=== PATIENT | female | born 1980 | race Two or more races ===

== ENCOUNTER 2017-02-09 13:40 | Emergency (ER) | payer SELFPAY ==
[2017-02-09 13:48] VITALS: TEMP 98.2
[2017-02-09] MEDS ORDERED: IOPAMIDOL (ISOVUE 370) 100 ML BTL IV ONE (13:48)
--- NOTE | 2017-02-09 13:49 | EDPHY ---
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 Her electrical assembly supervisor who was driving her here describes her eyes rolling back in her tongue sticking out and shaking for couple of seconds. She says she looks a little bit out of it at work and then was confused in the car after waking up from this episode where her eyes rolled back. Here she primarily complains of a headache at the left side of her neck and the base of her skull on the left side. Not confused now. REVIEW OF SYSTEMS: Eye: no change in vision ENT: no sore throat Cardiac: no chest pain or syncope Pulmonary: no cough or SOB Abdomen: no vomiting, diarrhea, abdominal pain Musculoskeletal: Neck as above Skin: no rash Neuro: HPI Constitutional: no fever : no urinary symptoms A comprehensive 10 point review of systems is otherwise negative aside from elements mentioned in the history of present illness. PAST MEDICAL HISTORY: Negative, felt well just before arrival. Denies . Family history: Negative for venous thromboembolism. Social history: Denies drug or alcohol. General Appearance: Sleepy but answers questions appropriately. Eyes: No scleral icterus. ENT, Mouth: Normal mucous membranes. Respiratory: Normal respiratory effort, breath sounds equal, lungs are clear to auscultation. Cardiovascular: Regular rate and rhythm. Gastrointestinal: Abdomen is soft and non tender. Neurological: Alert and oriented x3. Normally conversant. Face symmetric, normal movement and sensation in all extremities. Good outside physical damage appraiser strength in both arms. Skin: Warm and dry, no rashes. Musculoskeletal: No peripheral edema and no joint swelling. No neck stiffness or meningeal signs. Psychiatric: Not agitated. Emergency Department course/MDM: I-STAT, noncontrast head CT. With sudden onset of headache my concern for subarachnoid is high enough that I would not make this patient a stroke alert as she has contraindication to Activase. Discussed with Wesley at 1407, agrees with evaluation, no stroke alert, will followup as in or outpatient. 1411: Normal CT head and angio neck per Dr. Bautista. 1430: Lumbar puncture discussed and consented, indication is sudden onset worst headache of life with negative noncontrast head CT, evaluate for subarachnoid. 1501: WBC 0, RBC 5. This CSF would be consistent with a few red blood cells from the procedure but I think that subarachnoid is unlikely. At this point I think the patient is unlikely to have acute medical or surgical emergent condition. I think that intracranial venous thrombosis or dissection or HAIR COLORIST infection is unlikely. I think she was unlikely to have a seizure and more likely had syncope with myoclonic jerking in her electrical assembly supervisor's car on the way here. Did not have incontinence and did not bite her tongue, did not have true postictal state, as she was really only confused for a few minutes. Patient had recurrent neck pain and was given 50 mcg IV fentanyl and some oral acetaminophen. At 3:10 p.m. she is pretty sleepy and results were discussed with her employer and her partner. I think it is reasonable for her to be discharged with symptomatic treatment at this time; NSAIDs and neurology followup. Constitutional: Initial Vital Signs Temperature (C) 36.8 C 02/09/17 13:44 Heart Rate 64 02/09/17 13:44 Respiratory Rate 16 02/09/17 13:44 Blood Pressure 99/86 H 02/09/17 13:44 O2 Sat (%) 96 02/09/17 13:44 O2 Delivery Mode Room Air Allergies/Adverse Reactions: No Known Allergies Allergy (Unverified 02/09/17 13:44) Home Medications: Medication Instructions Recorded NK [No Known Home Meds] 02/09/17 Medical Decision Making - Diagnostics EKG Interpretation: 12-lead EKG interpreted by me; official reading is in trace master. My interpretation is sinus rhythm with right axis rate 71. Imaging Results: Imaging Impressions Head CT 02/09/17 13:43 Impression: Normal. Results called and discussed with Dr. Jeff Vinson at 02/09/2017 14:03. Head CTA 02/09/17 13:49 Impression: Normal CT angiogram of the carotid arteries and vertebral arteries. Measurement of carotid stenosis is based on the residual internal carotid diameter with [place] Symptomatic Carotid Endarterectomy Trial (NASCET) based stenosis levels. CT Angiogram of the Brain Clinical Indications: Left-sided neck pain. Headache. Syncope. . Technique: CT angiogram of the brain was performed with the uneventful intravenous administration of 85 mL Isovue-370 contrast. Multiplanar reconstructions including 3D reconstructions performed and evaluated on [employer] workstation in order to better evaluate the [place] vessels. Images were manipulated by the radiologist at the computer workstation. Dose reduction techniques were utilized. Findings: Major vessels of the [place] are adequately displayed, demonstrating no evidence of aneurysm, vascular malformation, flow-limiting stenosis, or occlusion. Bilateral cavernous internal carotid arteries and vertebrobasilar system demonstrates no evidence of flow-limiting stenosis, aneurysm, occlusion or dissection. Superior sagittal sinus, transverse sinuses, and major veins demonstrate no evidence of intraluminal thrombi. Impression: Negative CT angiogram of the brain. Results called and discussed with Dr. Jeff Vinson at 02/09/2017 14:14. Neck CTA 02/09/17 13:49 Impression: Normal CT angiogram of the carotid arteries and vertebral arteries. Measurement of carotid stenosis is based on the residual internal carotid diameter with [place] Symptomatic Carotid Endarterectomy Trial (NASCET) based stenosis levels. CT Angiogram of the Brain Clinical Indications: Left-sided neck pain. Headache. Syncope. . Technique: CT angiogram of the brain was performed with the uneventful intravenous administration of 85 mL Isovue-370 contrast. Multiplanar reconstructions including 3D reconstructions performed and evaluated on [employer] workstation in order to better evaluate the [place] vessels. Images were manipulated by the radiologist at the computer workstation. Dose reduction techniques were utilized. Findings: Major vessels of the [place] are adequately displayed, demonstrating no evidence of aneurysm, vascular malformation, flow-limiting stenosis, or occlusion. Bilateral cavernous internal carotid arteries and vertebrobasilar system demonstrates no evidence of flow-limiting stenosis, aneurysm, occlusion or dissection. Superior sagittal sinus, transverse sinuses, and major veins demonstrate no evidence of intraluminal thrombi. Impression: Negative CT angiogram of the brain. Results called and discussed with Dr. Jeff Vinson at 02/09/2017 14:14. Procedures: Procedure: Lumbar puncture. Indication: headache Risks benefits and alternatives to the procedure were discussed including but not limited to infection, headache, bleeding, and neurologic damage. Consent was obtained. The patient was prepped and draped in the usual sterile fashion. A time out was completed. The entry site was anesthetized with 1% lidocaine and a lumbar puncture was performed with a 23-gauge spinal needle. Single attempt. Approximately 4 mL of clear fluid was obtained. Opening pressure was not obtained. There were no complications. The procedure was performed by myself. Differential Diagnosis: Differential diagnosis considered for headache including but not limited to subarachnoid hemorrhage, migraine headache, tension headache and infectious causes such as meningitis, pharyngitis and sinusitis. - Data Points Laboratory Results: Laboratory Results 02/09/17 13:45 02/09/17 13:45 02/09/17 02/09/17 02/09/17 14:20 13:45 13:45 WBC RBC Hgb POC Hgb Hct POC Hct MCV MCH MCHC RDW Plt Count MPV Neut % (Auto) Lymph % (Auto) [place] % (Auto) Eos % (Auto) Baso % (Auto) Nucleat RBC Rel Count Absolute Neuts (auto) Absolute Lymphs (auto) Absolute Monos (auto) Absolute Eos (auto) Absolute Basos (auto) Absolute Nucleated RBC Immature Gran % Immature Gran # PT INR APTT POC Sodium Sodium 140 mEq/L mEq/L (134-144) POC Potassium Potassium 4.3 mEq/L mEq/L (3.5-5.2) POC Chloride Chloride 108 mEq/L mEq/L (97-110) Carbon Dioxide 16 mEq/l L mEq/l (22-31) Anion Gap 16 mEq/L mEq/L (8-16) POC BUN BUN 13 mg/dL mg/dL (7-23) Creatinine 0.7 mg/dL mg/dL (0.6-1.0) POC Creatinine Estimated GFR > 60 Glucose 78 mg/dL mg/dL (70-100) POC Glucose Calcium 9.8 mg/dL mg/dL (8.5-10.4) Beta HCG, Qual NEGATIVE CSF Tube Number 4 CSF Appearance CLEAR (CLEAR) CSF Color COLORLESS (COLORLESS) CSF Supernatant COLORLESS (COLORLESS) CSF WBC 0 /mm3 /mm3 (0-5) CSF RBC 5 /mm3 H /mm3 (0-0) CSF Glucose 45 mg/dL L mg/dL (50-75) CSF Total Protein 13 mg/dL mg/dL (12-60) 02/09/17 02/09/17 02/09/17 13:45 13:45 13:41 WBC 6.56 10^3/uL 10^3/uL (3.80-9.50) RBC 4.72 10^6/uL 10^6/uL (4.18-5.33) Hgb 14.7 g/dL g/dL (12.6-16.3) POC Hgb 15.6 gm/dL gm/dL (12.6-16.3) Hct 41.8 % % (38.0-47.0) POC Hct 46 % % (38-47) MCV 88.6 fL fL (81.5-99.8) MCH 31.1 pg pg (27.9-34.1) MCHC 35.2 g/dL g/dL (32.4-36.7) RDW 14.5 % % (11.5-15.2) Plt Count 322 10^3/uL 10^3/uL (150-400) MPV 10.4 fL fL (8.7-11.7) Neut % (Auto) 62.0 % % (39.3-74.2) Lymph % (Auto) 28.8 % % (15.0-45.0) [place] % (Auto) 7.8 % % (4.5-13.0) Eos % (Auto) 0.8 % % (0.6-7.6) Baso % (Auto) 0.3 % % (0.3-1.7) Nucleat RBC Rel Count 0.0 % % (0.0-0.2) Absolute Neuts (auto) 4.07 10^3/uL 10^3/uL (1.70-6.50) Absolute Lymphs (auto) 1.89 10^3/uL 10^3/uL (1.00-3.00) Absolute Monos (auto) 0.51 10^3/uL 10^3/uL (0.30-0.80) Absolute Eos (auto) 0.05 10^3/uL 10^3/uL (0.03-0.40) Absolute Basos (auto) 0.02 10^3/uL 10^3/uL (0.02-0.10) Absolute Nucleated RBC 0.00 10^3/uL 10^3/uL (0-0.01) Immature Gran % 0.3 % % (0.0-1.1) Immature Gran # 0.02 10^3/uL 10^3/uL (0.00-0.10) PT 13.7 SEC SEC (12.0-15.0) INR 1.06 (0.83-1.16) APTT 28.9 SEC SEC (23.0-38.0) POC Sodium 141 mEq/L mEq/L (134-144) Sodium POC Potassium 3.9 mEq/L mEq/L (3.3-5.0) Potassium POC Chloride 105 mEq/L mEq/L (97-110) Chloride Carbon Dioxide Anion Gap POC BUN 13 mg/dL mg/dL (7-23) BUN Creatinine POC Creatinine 0.6 mg/dL mg/dL (0.6-1.0) Estimated GFR Glucose POC Glucose 84 mg/dL mg/dL (70-100) Calcium Beta HCG, Qual CSF Tube Number CSF Appearance CSF Color CSF Supernatant CSF WBC CSF RBC CSF Glucose CSF Total Protein Microbiology Results: MICROBIOLOGY 02/09/17 14:20 Cerebral Spinal Fluid Gram Stain - Final Medications Given: Discontinued Medications Acetaminophen (Tylenol) 650 mg PO EDNOW ONE Stop: 02/09/17 14:43 Last Admin: 02/09/17 14:55 Dose: Not Given Fentanyl (Sublimaze) 50 mcg IVP EDNOW ONE Stop: 02/09/17 14:43 Last Admin: 02/09/17 14:46 Dose: 50 mcg Ketorolac Tromethamine (Toradol) 15 mg IVP EDNOW ONE Stop: 02/09/17 15:05 Last Admin: 02/09/17 15:13 Dose: 15 mg Point of Care Test Results: 02/09/17 13:41 POC Sodium 141 POC Potassium 3.9 POC Chloride 105 POC BUN 13 POC Creatinine 0.6 POC Glucose 84 Departure - Departure Disposition: Home, Routine, Self-Care Clinical Impression: Headache Qualifiers: Headache type: unspecified Headache chronicity pattern: acute headache Intractability: not intractable Qualified Code(s): R51 - Headache Syncope Qualifiers: Syncope type: unspecified Qualified Code(s): R55 - Syncope and collapse Condition: Good Instructions: Acute Headache (ED) Additional Instructions: Testing including lumbar puncture and CT imaging did not show evidence of infection, aneurysm, bleeding or tumor. No evidence of neck blood vessel dissection or tearing. Please call Dr. Olson's office and follow-up tomorrow if you're still in town, or next week when you return from [place]. Oral ibuprofen 600 mg every 8 hours for the next 3 days. Referrals: Mitchell Olson, [Medical Doctor] - As per Instructions
[2017-02-09 14:02] LABS: % IMMATURE GRANULYOCYTES 0.3 % (0.0-1.1); ABSOLUTE IMMATURE GRANULOCYTES 0.02 10^3/uL (0.00-0.10); ADD DIFF? NO; ADD MORPH? NO; ADD SCAN? NO; ATYPICAL LYMPHOCYTE FLAG 0 (0-99); FRAGMENT RBC FLAG 0 (0-99); HEMATOCRIT 41.8 % (38.0-47.0); HEMOGLOBIN 14.7 g/dL (12.6-16.3); LEFT SHIFT FLG 0 (0-99); LIPEMIA HEMOLYSIS FLAG 90 (0-99); MEAN CELL HEMOGLOBIN 31.1 pg (27.9-34.1); MEAN CELL HEMOGLOBIN CONCENTR. 35.2 g/dL (32.4-36.7); MEAN CELL VOLUME 88.6 fL (81.5-99.8); MEAN PLATELET VOLUME 10.4 fL (8.7-11.7); PLATELET CLUMPS FLAG 0 (0-99); PLATELET COUNT 322 10^3/uL (150-400); RED BLOOD CELL COUNT 4.72 10^6/uL (4.18-5.33); RED CELL DISTRIBUTION WIDTH 14.5 % (11.5-15.2)
[2017-02-09 14:06] LABS: INR 1.06 (0.83-1.16); PROTIME(PATIENT) 13.7 SEC (12.0-15.0)
[2017-02-09 14:07] LABS: APTT 28.9 SEC (23.0-38.0)
--- NOTE | 2017-02-09 14:09 | CPEKG ---
Heart Rate: 71 RR Interval: 845 P-R Interval: 152 QRSD Interval: 96 QT Interval: 400 QTC Interval: 435 P Heath: 43 QRS Heath: 106 T Wave Heath: 36 EKG Severity - OTHERWISE NORMAL ECG - EKG Impression: SINUS RHYTHM EKG Impression: BORDERLINE RIGHT AXIS DEVIATION Electronically Signed By: Jeff Vinson 09-Feb-2017 15:56:26
[2017-02-09 14:17] LABS: ANION GAP 16 mEq/L (8-16); CALCIUM 9.8 mg/dL (8.5-10.4); CARBON DIOXIDE 16 mEq/l (22-31); CHLORIDE 108 mEq/L (97-110); CREATININE 0.7 mg/dL (0.6-1.0); GLOMERULAR FILTRATION RATE > 60; GLUCOSE 78 mg/dL (70-100); POTASSIUM 4.3 mEq/L (3.5-5.2); SODIUM 140 mEq/L (134-144)
[2017-02-09] MEDS ORDERED: fentaNYL 100 MCG/2 ML INJ IVP ONE (14:42)
[2017-02-09] MEDS: ACETAMINOPHEN 325 MG TAB PO ONE ×2 (14:45→14:55)
[2017-02-09 14:52] LABS: CSF COLOR COLORLESS (COLORLESS)
[2017-02-09 14:53] LABS: CSF APPEARANCE CLEAR (CLEAR); CSF SUPERNATANT COLORLESS (COLORLESS); WBC, CSF 0 /mm3 (0-5)
[2017-02-09 14:54] LABS: PROTEIN, CSF 13 mg/dL (12-60)
[2017-02-09] MEDS ORDERED: KETOROLAC 30 MG/1 ML SDV IVP ONE (15:04)
[2017-02-09 15:16] VITALS: BP 118/82; PULSE 56; RESP 16; O2SAT 98
== END 2017-02-09 15:45 | disposition home or self-care (01) ==
PROC: 009U3ZX Drainage of Spinal Canal, Percutaneous Approach, Diagnostic (ICD-10-PCS; principal; 2017-02-09)
DX: R51 Headache (principal); R55 Syncope and collapse
CPT/HCPCS: 82947-QW; 96374; J1885; J3010; Q9967